=== PATIENT | male | born 1965 | race Caucasian/White ===

== ENCOUNTER 2018-02-05 10:54 | Emergency (ER) | payer OTHER, BC, SELFPAY ==
[2018-02-05 10:56] VITALS: BP 164/125; PULSE 91; RESP 18; TEMP 36.9; O2SAT 95; BMI 37.8
[2018-02-05 12:01] VITALS: BP 153/87; PULSE 82; RESP 16; O2SAT 97
--- NOTE | 2018-02-05 12:01 | ED.RN ---
ORTHOPEDIC PHYSICIAN AT THE BEDSIDE PERFORMING TESTING FOR COMPARTMENT SYNDROME. CONSENT SIGNED
--- NOTE | 2018-02-05 12:24 | ED.VISSUMM ---
- ER Visit Summary Date of Service: 02/05/18 Chief Complaint: Right foot pain History of Present Illness: The patient is a 52 M presenting for evaluation secondary to pain in the right foot. Patient states that he was run over on Monday by a skid bulk loader on the right foot. He had negative x-rays at urgent care. Patient was following up with orthopedics today, had repeat x-rays that showed no fracture, but he has persistent swelling and the orthopedist was concerned for the possibility of compartment syndrome so she sent the patient to the emergency department. Patient denies that he has any history of neuropathy. He denies any numbness or weakness associated with this. He states that he is able to bear weight. He really does not have any pain at rest. Physical Examination: Lower extremity exam shows significant ecchymosis and swelling of the right foot. Normal range of motion of the ankle and toes. Minimal tenderness to palpation over the midfoot. No pain with range of motion of the toes passively. Normal capillary refill distally. Test Results: None performed Emergency Department Course and Treatment: Patient presented due to concern for compartment syndrome. He appears to have normal circulation in the foot, and has no pain at rest and no pain with passive stretch but orthopedics was concerned for the possibility of compartment syndrome. Orthopedics presented to the bedside and performed compartment measurements which were found to be normal. Patient was recommended ice and elevation of the foot and was discharged with a course of tramadol. Disposition: Discharge Impression: 1. Right foot contusion This note was generated with [employer] dictation software. It may contain incorrect words, spelling, and punctuation that were not noted in review of the chart prior to signing ED Disposition - Plan for ED Patient: Disposition: Home or Assisted Living Chief Complaint: Lower Extremity Injury Diagnosis: Contusion of right foot Instructions: ED Contusion Foot Prescriptions: traMADol [Ultram] 50 mg PO Q4H PRN PRN 3 Days #12 tab PRN Reason: Pain Additional Instructions: Followup with ortho as directed
[2018-02-05 12:26] VITALS: BP 127/54; PULSE 67; RESP 15; O2SAT 98
--- NOTE | 2018-02-05 12:30 | ED.DCSUM_ITS ---
- ER Visit Summary Date of Service: 02/05/18 Chief Complaint: Right foot pain History of Present Illness: The patient is a 52 M presenting for evaluation secondary to pain in the right foot. Patient states that he was run over on Monday by a skid truck unloader on the right foot. He had negative x-rays at urgent care. Patient was following up with orthopedics today, had repeat x-rays that showed no fracture, but he has persistent swelling and the orthopedist was concerned for the possibility of compartment syndrome so she sent the patient to the emergency department. Patient denies that he has any history of neuropathy. He denies any numbness or weakness associated with this. He states that he is able to bear weight. He really does not have any pain at rest. Physical Examination: Lower extremity exam shows significant ecchymosis and swelling of the right foot. Normal range of motion of the ankle and toes. Minimal tenderness to palpation over the midfoot. No pain with range of motion of the toes passively. Normal capillary refill distally. Test Results: None performed Emergency Department Course and Treatment: Patient presented due to concern for compartment syndrome. He appears to have normal circulation in the foot, and has no pain at rest and no pain with passive stretch but orthopedics was concerned for the possibility of compartment syndrome. Orthopedics presented to the bedside and performed compartment measurements which were found to be normal. Patient was recommended ice and elevation of the foot and was discharged with a course of tramadol. Disposition: Discharge Impression: 1. Right foot contusion This note was generated with [employer] dictation software. It may contain incorrect words, spelling, and punctuation that were not noted in review of the chart prior to signing ED Disposition - Plan for ED Patient: Disposition: Home or Assisted Living Chief Complaint: Lower Extremity Injury Diagnosis: Contusion of right foot Instructions: ED Contusion Foot Prescriptions: traMADol [Ultram] 50 mg PO Q4H PRN PRN 3 Days #12 tab PRN Reason: Pain Additional Instructions: Followup with ortho as directed
--- NOTE | 2018-02-05 17:02 | PCM.PN.ORT ---
Subjective: Pt is a 52 yo M who was seen in my office earlier this morning. Had crush injury to the R foot Monday after being run over by a skidloader. Has been NWB RLE with crutches. Has taken advil and tylenol for pain which he feels is well controlled. C/o increasing numbness,edema and ecchymosis. Radiographs were negative for fracture at Urgent Care center on 02/03/2018. C/f developing compartment syndrome. Sent from office appointment to [facility] ER for [place] wick catheter testing. Objective: RLE: Vasc: pedal pulses non-palpable 2/2 edema, cap refill to digits 1-5 is sluggish, significant edema of the toes, foot and extending proximally to the ankle, cool distally, +pallor Neuro: diminished light touch sensation to the digits, more so dorsally Derm: no abrasions or lacerations noted, significant ecchymosis of the foot extending proximally to the ankle noted MS: pain with passive DF/PF of the digits and PF of the ankle, pain with heel compression - Physical Exam General: Alert, Cooperative Vital Signs Temp Pulse Resp BP Pulse Ox 98.5 F 67 15 127/54 H 98 02/05/18 10:56 02/05/18 12:26 02/05/18 12:26 02/05/18 12:26 02/05/18 12:26 Weight: 248 lb 12.8 oz Body Mass Index (BMI) 37.8 Medical Necessity - Tobacco Use Smoking Status: Former smoker Assessment/Plan All Active Problems Contusion of right foot (Acute) 52 yo M with R foot crush injury, no obvious fractures, significant edema and sensory changes noted in office c/f compartment syndrome -Pt evaluated at bedside with his present -Vitals reviewed and BP repeated -informed consent was obtained for bedside intercompartmental pressure screening via gwen wick catheter. Benefits and risks were explained and all questions were answered. Risk of normal readings and given his physical presentation that this may develop. -The dorsum of the foot was prepped with alcohol and 0.5 cc 2% lidocaine plain was injected SQ at the sites of measurement along the 2nd and 4th metatarsals. This was repeated at the medial plantar and lateral plantar compartments. -The [place] wick catheter was [facility]ed at a 45 degree angle and inserted at 45 degrees in the dorsomedial and Dorsolateral foot compartments, with it being zero'ed in between each insertion. Readings were <8mmHg. This was repeated at the lateral plantar and lateral medial foot with readings <8mmHg and 15mmHg respectively. Diastolic pressure was measured initially at 125 and then on repeat was 85. The insertion sites were then dressed with a bandaid. -Pt advised to continually monitor his foot and report immediately to the ER with any changes in pain, sensation, edema. He will keep it at heart level and not elevate or dangle. He will refrain from a compressive bandage at this time. I recommend he take tylenol 100mg q8h for pain. Can resume nsaids this weekend if edema and ecchymosis improve. -Pt to f/u with me on Monday in clinic for re-evaluation and continued work up for injury. NWB RLE with crutches until then.
--- NOTE | 2018-02-05 17:08 | PN.ORTHO_ITS ---
Subjective: Pt is a 52 yo M who was seen in my office earlier this morning. Had crush injury to the R foot Monday after being run over by a skidloader. Has been NWB RLE with crutches. Has taken advil and tylenol for pain which he feels is well controlled. C/o increasing numbness,edema and ecchymosis. Radiographs were negative for fracture at Urgent Care center on 02/03/2018. C/f developing compartment syndrome. Sent from office appointment to [facility] ER for [place] wick catheter testing. Objective: RLE: Vasc: pedal pulses non-palpable 2/2 edema, cap refill to digits 1-5 is sluggish, significant edema of the toes, foot and extending proximally to the ankle, cool distally, +pallor Neuro: diminished light touch sensation to the digits, more so dorsally Derm: no abrasions or lacerations noted, significant ecchymosis of the foot extending proximally to the ankle noted MS: pain with passive DF/PF of the digits and PF of the ankle, pain with heel compression - Physical Exam General: Alert, Cooperative Vital Signs Temp Pulse Resp BP Pulse Ox 98.5 F 67 15 127/54 H 98 02/05/18 10:56 02/05/18 12:26 02/05/18 12:26 02/05/18 12:26 02/05/18 12:26 Weight: 248 lb 12.8 oz Body Mass Index (BMI) 37.8 Medical Necessity - Tobacco Use Smoking Status: Former smoker Assessment/Plan All Active Problems Contusion of right foot (Acute) 52 yo M with R foot crush injury, no obvious fractures, significant edema and se nsory changes noted in office c/f compartment syndrome -Pt evaluated at bedside with his present -Vitals reviewed and BP repeated -informed consent was obtained for bedside intercompartmental pressure screening via nick[place] wick catheter. Benefits and risks were explained and all questions were answered. Risk of normal readings and given his physical presentation that this may develop. -The dorsum of the foot was prepped with alcohol and 0.5 cc 2% lidocaine plain was injected SQ at the sites of measurement along the 2nd and 4th metatarsals. This was repeated at the medial plantar and lateral plantar compartments. -The Nicki wick catheter was the [facility]'ed at a 45 degree angle and inserted at 45 degrees in the dorsomedial and Dorsolateral foot compartments, with it being zero'ed in between each insertion. Readings were <8mmHg. This was repeated at the lateral plantar and lateral medial foot with readings <8mmHg and 15mmHg respectively. Diastolic pressure was measured initially at 125 and then on repeat was 85. The insertion sites were then dressed with a bandaid. -Pt advised to continually monitor his foot and report immediately to the ER with any changes in pain, sensation, edema. He will keep it at heart level and not elevate or dangle. He will refrain from a compressive bandage at this time. I recommend he take tylenol 100mg q8h for pain. Can resume nsaids this weekend if edema and ecchymosis improve. -Pt to f/u with me on Monday in clinic for re-evaluation and continued work up for injury. NWB RLE with crutches until then.
== END 2018-02-05 12:38 | disposition home or self-care (01) ==
PROVIDERS: Emergency Provider Emergency Medicine; Family Provider Preventive Medicine Occupational Medicine; PCP Preventive Medicine Occupational Medicine
DX: S90.31XA Contusion of right foot, initial encounter (principal); W31.89XA Contact with other specified machinery, initial encounter; Y93.9 Activity, unspecified; Y92.9 Unspecified place or not applicable; Y99.0 Civilian activity done for income or pay; Z72.0 Tobacco use
CPT/HCPCS: 99282

== ENCOUNTER 2018-02-08 19:46 | Emergency (ER) | payer OTHER, BC, SELFPAY ==
[2018-02-08 19:47] VITALS: BP 163/97; PULSE 100; RESP 20; TEMP 36.9; O2SAT 99; BMI 35.6
--- NOTE | 2018-02-08 20:31 | ED.DCSUM_ITS ---
- ER Visit Summary Date of Service: 02/08/18 Chief Complaint: Blisters and discoloration right foot/ankle History of Present Illness: The patient is a 52 M who had a crush injury February 03. He was seen in the emergency department by Dr. Delgado and by Dr. podiatry medicine Dr. Joanne Molina for compartment syndrome. Her note was read. Patient did what he was told. He denies paresthesia, anesthesia or motor weakness. He denies pain in his distal leg, foot or toes. There is no history of new trauma. was concerned because of increased discoloration near his toes and blisters dorsal lateral proximal aspect of the right foot. Physical Examination: Vital signs noted unremarkable blood pressure 163/97. There is evidence of trauma to the leg. The foot is soft nonpainful. There is no pain with passive plantar dorsiflexion of the ankle or toes. Cap refill is normal. DP and PT pulses are palpable. There is a small blister noted which is not hemorrhagic. There is no evidence of cellulitis, lymphangitis or popliteal lymphadenopathy. Test Results: None Emergency Department Course and Treatment: Dr. Joanne Molina was paged. She was informed of patient's concerns and his physical findings. He is to keep his appointment for this coming Monday unless he develops severe pain, numbness tingling or pallor of the foot/toes. Treatment Plan: As before Disposition: Discharged home in stable condition Impression: Evaluation of crush injury right distal leg, ankle and foot This note was generated with [employer] dictation software. It may contain incorrect words, spelling, and punctuation that were not noted in review of the chart prior to signing ED Disposition - Plan for ED Patient: Disposition: Home or Assisted Living Chief Complaint: Lower Extremity Injury Instructions: ED Contusion Lower Ext Referrals: Gato Juan DO [Primary Care Provider] - Joanne Molina DPM [STAFF PHYSICIAN] - Keep Jennifer appointment Additional Instructions: If you develop numbness or tingling, severe pain or pallor to foot or toes return to the emergency department immediately otherwise keep appointment with Dr. Joanne Molina.
[2018-02-08 20:46] VITALS: BP 176/89; PULSE 85; RESP 16; O2SAT 96
== END 2018-02-08 20:47 | disposition home or self-care (01) ==
PROVIDERS: Emergency Provider Emergency Medicine; Family Provider Preventive Medicine Occupational Medicine; PCP Preventive Medicine Occupational Medicine
DX: S90.01XA Contusion of right ankle, initial encounter (principal); S90.31XA Contusion of right foot, initial encounter; X58.XXXA Exposure to other specified factors, initial encounter; Y93.9 Activity, unspecified
CPT/HCPCS: 99282

== ENCOUNTER → 2018-02-16 14:25 | Outpatient (CLI) | payer BC, OTHER, SELFPAY ==
[2018-02-08 19:47] VITALS: BMI 35.6
--- NOTE | 2018-02-16 14:35 | CT_ITS ---
INJURY, PT GOT FOOT RAN OVER BY A SKID HISTORY DEPARTMENT CHAIR, PAIN AND SWELLING Exam: Noncontrast CT right foot and ankle TECHNIQUE: Routine bone CT protocol was performed of the right ankle and right foot. 2-D reformats were performed by the technologist. A radiation dose optimization technique was used for this scan. IV Contrast dosage and agent: None. COMPARISON: None FINDINGS: The Achilles insertion on the calcaneus was not imaged. No fracture or dislocation. The tibiotalar joint space is preserved and the ankle mortise is not widened. Intact calcaneus and talus. 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 Joint spaces appear preserved. No bony erosions. At the foot, no Lisfranc injury or dislocation. Intact sesamoids. No radiopaque foreign body seen. Superficial soft tissue swelling of the anterolateral foot and ankle. CT/Extremity Lower without Contra IMPRESSION: 1. No fracture, dislocation, or instability. 2. Incomplete calcaneonavicular coalition. . 3. Superficial soft tissue swelling of the anterolateral foot and ankle Individualized dose optimization techniques were used for this CT. at 0326 Reported and signed by: Brandon Maharaj MD Electronically Signed: Brandon Maharaj, at 3:23 EST Tel , Service support ,
== END ==
PROVIDERS: Family Provider Preventive Medicine Occupational Medicine; PCP Preventive Medicine Occupational Medicine; Referring Provider Podiatrist Foot & Ankle Surgery; Visit Provider Podiatrist Foot & Ankle Surgery
DX: M79.671 Pain in right foot (principal); S97.81XA Crushing injury of right foot, initial encounter
CPT/HCPCS: 73700

== ENCOUNTER 2018-03-15 11:35 | Day surgery (SDC) | payer OTHER, BC, SELFPAY ==
[2018-03-15] VITALS (8 sets, daily range): BP systolic 137–179; BP diastolic 81–103; PULSE 78–98; RESP 14–16; TEMP 36.1–37; O2SAT 93–97; BMI 37.0
--- NOTE | 2018-03-15 13:10 | BON_PTH ---
PATIENT: JENNIFER BOSTON [place] [facility] [place][id number] AGE/SX: 53/M ROOM: RE03/15/[address]: Dr. Joanne Molina DPM : 1965 BED: DIS: 03/15/2018 SPEC #: [id number] RECD: 03/16/18 14:33 STATUS: [place] #: [id number] ALEAH: 03/15/18 13:[address]: Joanne Molina DEPT: SURGICAL PATHOLOGY RECD BY: Yusef Tjeada ENTERED: 03/16/18 14:34 SP TYPE: Bone OTHR DR: Dr. Jesus Drew MD Tissues: Bone of foot, NOS Procedures: Decalcification bone/plaque Surgery Specimen Level III HEADER OPERATION: Tarsal coalition resection with muscle reposition PRE-OP DIAGNOSIS: Crushing injury right foot, congenital deformity right foot TISSUE SUBMITTED: Tarsal coalition resection right foot MICROSCOPIC DIAGNOSIS Tarsal coalition resection right foot: Pieces of bone with reactive changes. ZULY:sandip 03/23/18 MICROSCOPIC DESCRIPTION Slides are reviewed. GROSS DESCRIPTION Received in fixative is one container labeled with the patient's name and designated tarsal coalition resection right foot. The specimen consists of multiple irregular and gritty fragments of light mayorga-white bone that in aggregate measure 2.5 x 1.2 x 0.2 cm. The specimen is totally submitted in one cassette after decalcification. / AM:sandip 03/16/18 TC:5 CPT: 16289, 50664
--- NOTE | 2018-03-15 13:38 | RAD_ITS ---
STUDY: X-RAY - RIGHT FOOT CLINICAL: Male, 53 years old. Documentation of radiation dose during a tarsal coalition resection. TECHNIQUE: 4 view(s) of the foot. COMPARISON: CT of the foot dated February 16, 2018. FINDINGS: Total exposure time: 35 seconds. Total Air Kerma (mGy): 1.37 Multiple images document a surgical resection of the tarsal tarsal coalition. Please see operative report for additional details. RAD/Ankle 2 Views IMPRESSION: Documentation of radiation dose. Electronically Signed: Desiree Fung MD at 2:51 EST , Service support ,
[2018-03-15] MEDS: Cefazolin 2 GM in 0.9% Normal Saline 100 ML IV (13:43)
--- NOTE | 2018-03-15 15:48 | PCM.IMDPSTOP ---
Immediate Post-Op Note Date of Procedure: 03/15/18 Primary Surgeon/Physician: Joanne Molina DPM coarse wire drawer: Vicky Stallings Pre-Operative Diagnosis: R CN coalition Post-Operative Diagnosis: same Surgery/Procedure Performed:: R tarsal coalition resection, repair extensor tendon Description of Surgical Findings:: see dictation Estimated Blood Loss: minimal Specimen's removed: R foot bone tarsal coalition Type of Anesthesia:: General/Regional - Admit VTE Documentation VTE Present on Admission: No VTE Mechan Device Prophylaxis: SCD's, Knee High MELVIN Hose VTE Pharm Prophylaxis ordered?: Yes
--- NOTE | 2018-03-15 15:50 | PCM.DC.ORTHO ---
Discharge Activity: May Not Drive, May not drive while taking narcotic pain medications., May Not Shower, Use Walker, Use Crutches Ice area for (Minutes): 20 - behind right knee 20 minutes of each hour while awake Weight Bearing Status: No weight bearing Keep extremity elevated above heart level: Operative Extremity Call your doctor if your incision/area has: Sudden Increased Bleeding Call your doctor if you observe: Fever of 101 or Higher, Shortness of breath, Chest pain, Calf discomfort, Uncontrolled pain Cleanse incision/area with: Keep Dressing Clean & Dry Allergies/Adverse Reactions: Allergies No Known Allergies Allergy (Verified 03/09/18 10:43) Medications to take at Discharge Doxycycline Hyclate 100 mg PO BID 14 Days #28 tab 03/15/18 Oxycodone [Oxyir] 5 mg PO Q6H PRN PRN 7 Days #30 tab 03/15/18 The following prescriptions were given: Oxycodone [Oxyir] 5 mg PO Q6H PRN PRN 7 Days #30 tab PRN Reason: Pain Doxycycline Hyclate 100 mg PO BID 14 Days #28 tab Primary Care Physician: Jesus Drew MD [Primary Care Provider] - Test Results: Test results from this visit will be discussed in further detail at your follow-up appointment, if applicable. Please Follow Up With: Joanne Molina DPM - At your previously scheduled post operative appointment Proposed Discharge Date: 03/15/18
--- NOTE | 2018-03-15 15:53 | DCINST_ITS ---
Discharge Activity: May Not Drive, May not drive while taking narcotic pain medications., May Not Shower, Use Walker, Use Crutches Ice area for (Minutes): 20 - behind right knee 20 minutes of each hour while awake Weight Bearing Status: No weight bearing Keep extremity elevated above heart level: Operative Extremity Call your doctor if your incision/area has: Sudden Increased Bleeding Call your doctor if you observe: Fever of 101 or Higher, Shortness of breath, Chest pain, Calf discomfort, Uncontrolled pain Cleanse incision/area with: Keep Dressing Clean & Dry Allergies/Adverse Reactions: Allergies No Known Allergies Allergy (Verified 03/09/18 10:43) Medications to take at Discharge Doxycycline Hyclate 100 mg PO BID 14 Days #28 tab 03/15/18 Oxycodone [Oxyir] 5 mg PO Q6H PRN PRN 7 Days #30 tab 03/15/18 The following prescriptions were given: Oxycodone [Oxyir] 5 mg PO Q6H PRN PRN 7 Days #30 tab PRN Reason: Pain Doxycycline Hyclate 100 mg PO BID 14 Days #28 tab Primary Care Physician: Jesus Drew MD [Primary Care Provider] - Test Results: Test results from this visit will be discussed in further detail at your follow- up appointment, if applicable. Please Follow Up With: Joanne Molina DPM - At your previously scheduled post operative appointment Proposed Discharge Date: 03/15/18
--- NOTE | 2018-03-15 16:00 | RAD_ITS ---
STUDY: X-RAY - RIGHT FOOT CLINICAL: Male, 53 years old. Follow-up after recent surgery. TECHNIQUE: 3 view(s) of the foot. COMPARISON: CT of the foot dated February 16, 2018. FINDINGS: There is a posterior calcaneal enthesophyte. There is a small talar beak. The intertarsal articulations are within normal limits. Normal metatarsi. Normal metatarsophalangeal joint of the great toe. Normal tibial and fibular sesamoid bones. Normal interphalangeal joint of the great toe. Normal phalanges of the great toe. Normal second through fifth metatarsophalangeal joints. Normal interphalangeal joints and phalanges of the lesser toes. The patient has a posterior splint. There is soft tissue swelling and soft tissue emphysema. RAD/Foot min 3 Views IMPRESSION: Documentation of recent surgery with residual soft tissue swelling and soft tissue emphysema. Electronically Signed: Desiree Fung MD at 3:26 EST , Service support ,
--- NOTE | 2018-03-19 08:49 | PCM.OPRPT ---
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 He was seen that day by an Urgent [facility] who did not feel he had a fracture. He Presented to my clinic that Monday. Pt had significant pain and edema to his R foot and ankle. I did take him to the ER to [facility] catheter exam to rule out compartment syndrome as his presentation and examination was concerning. He followed up with me in clinic following that with continued pain, edema and ecchymosis to his R foot and ankle. A CT was performed on 02/16/2018 to rule out any pathology/fracture not seen on plain films. An incomplete osseous calcanealnavicular coalition was seen on CT. Given that he had no prior issues with this RLE, or knowledge of the coalition, I felt it was aggrevated significantly by the trauma and correlated clinically with his pain and presentation. Patient would like surgical intervention today. All risks, complications, and alternatives were discussed with the patient, and the patient signed an informed consent. No guarantees were given. Procedure: On 03/15/2018, Woodrow Lemon was visually and verbally identified in the preoperative holding area. The consent form was again reviewed with the patient, as were all risks, complications, and alternatives and the patient wished to proceed with the proposed surgery. The right foot was marked as the correct operative extremity. The patient was brought to the operating room and placed on the operating room table in the lazy lateral position. After induction by anesthesia, a surgical time out was performed and all present were in agreement. a pneumatic thigh tourniquet was then placed. At this time the right lower extremity was prepped and draped in the usual sterile fashion. after exsanguination with an esmarch the tourniquet was inflated to 300 mmHg. At this time attention was directed to the right anterolateral ankle/proximal foot. Utilizing intra operative fluoroscopy, the CN coalition was visualized on the oblique view.Using a #15 blade an oblique/linear incision was made over the coalition from the lateral edge of the navicular to distal to the fibula. The incision was bluntly carried deep through the subcutaneous tissues with careful attention paid to all bleeders, which were clamped and tied or bovied as necessary. All vital neurovascular structures were retracted. The EDB muscle belly was identified. In order to raise this muscle belly as a distal flap to expose the coalition was I did transect the peroneal tertius tendon which appeared attenuated and thinned. The ends were clamped with marcello clamps for later repair. The EDB muscle was then lifted from its insertion and the incomplete osseous coalition was visualized. At this time it was noted the limited amount of eversion of the foot. Several ossicles were identified and resected using a combination of ronguers and osteotomes. I then used small osteotome and a mallet to further resect the incomplete coalition with removal of the resected bone. Intraoperative fluoroscopy was used to guide this and evaluated the resection. When I was satisfied with the increased amount of eversion and the intraoperative fluorscopy images, the resection site was flushed with copious amounts of normal sterile saline. We had discussed a possible EDB muscle interposition, however, I felt the resection was sufficient and given his age he would not regrow the coalition. Bone wax was then placed on the lateral most navicular and the medial calcaneus at the resection site. The EDB muscle was then reapproximated to its insertion with 2.0 vicryl. The peroneal tertius tendon was then repair with 3.0 vicryl in an end to end fashion. Closure was then initiated with 2.0 vicryl for the deep structures, 3.0 vicryl for the subcutaneous tissue and 3.0 prolene for the skin. I did send the soft tissue and bone that I resected to pathology. The incision site was dressed with adaptic and dry sterile dressing. A multilayer compressive dressing was then applied along with a well padded posterior splint. Total tourniquet time was72 minutes with immediate capillary refill noted to all digits upon deflation. Intra operative fluoroscopy was utilized throughout the case, > 1 hour, to aid in visualization and confirmation of the coalition as well as the resection. Interpretation of the images was vital to my decision making process. The patient tolerated the procedure and anesthesia well. The patient was then transported to the postanesthesia care unit by a member of the anesthesia team and myself with all vital signs stable and neurovascular status of the right lower extremity equal to pre-operative levels. Anesthesia will perform a post operative RLE block in PACU. At the end of the case all sponge, needle and instrument counts were found to be correct. baggage inspector: Vicky Stallings Type of Anesthesia:: General/Regional Specimen's removed: R foot bone tarsal coalition Estimated Blood Loss (mL): minimal Description of Procedure: Indications: Pt is a [] yo with PMH PT would like surgical intervention today. All risks, complications, and alternatives were discussed with the patient, and the patient signed an informed consent. No guarantees were given. Procedure: On date, name was visually and verbally identified in the preoperative holding area. The consent form was again reviewed with the patient, as were all risks, complications, and alternatives and the patient wished to proceed with the proposed surgery. The [] foot/ankle was marked as the correct operative extremity. The patient was brought to the operating room and placed on the operating room table in the normal SUPINE position. After induction by anesthesia, a surgical time out was performed and all present were in agreement. a pneumatic thigh tourniquet was then placed. At this time the [] lower extremity was prepped and draped in the usual sterile fashion. after exsanguination with an esmarch the tourniquet was inflated to 300 mmHg. At this time attention was directed to the The incision was bluntly carried deep through the subcutaneous tissues with careful attention paid to all bleeders, which were clamped and tied or bovied as necessary. All vital neurovascular structures were retracted. Dressings Total tourniquet time was [] minutes with immediate capillary refill noted to all digits upon deflation. Intra operative fluoroscopy was utilized throughout the case, > 1 hour, to aid in visualization and confirmation of fracture reduction and screw and plate fixations. Interpretation of the images was vital to my decision making process. The patient tolerated the procedure and anesthesia well. The patient was then transported to the postanesthesia care unit by a member of the anesthesia team and myself with all vital signs stable and neurovascular status of the [ ] lower extremity equal to pre-operative levels. At the end of the case all sponge, needle and instrument counts were found to be correct. Physician social science research assistant was integral in all portions of this procedure. They assisted with positioning the patient, draping the extremity, holding retractors, closing the wound, and applying the dressing. This was all done under my direct supervision. The physician social science research assistant was essential for a successful, efficient surgery. Patient will be admitted/discharged... This ends dictation on [ ] dictated by Joanne Molina DPM
== END 2018-03-15 17:49 | disposition home or self-care (01) ==
LOC: SDC 11:35 → AC 11:37
PROVIDERS: Family Provider Family Medicine; PCP Family Medicine; Referring Provider Podiatrist Foot & Ankle Surgery; Visit Provider Podiatrist Foot & Ankle Surgery
DX: S97.81XA Crushing injury of right foot, initial encounter (principal); W31.89XA Contact with other specified machinery, initial encounter; Q66.89 Other specified congenital deformities of feet; R03.0 Elevated blood-pressure reading, without diagnosis of hypertension; Z87.891 Personal history of nicotine dependence
CPT/HCPCS: 01480; 28116; 28200; 64445; 73600; 73630; 76000; 88304; 88305; 88311; J7120; J2405

== ENCOUNTER 2018-03-28 15:41 | Emergency (ER) | payer BC, SELFPAY ==
[2018-03-15 12:04] VITALS: BMI 37.0
[2018-03-28 15:42] VITALS: BP 146/102; PULSE 102; RESP 18; TEMP 36.6; O2SAT 96; BMI 36.9
[2018-03-28 15:46] VITALS: TEMP 36.7
--- NOTE | 2018-03-28 15:51 | CT_ITS ---
STUDY: CT ABDOMEN AND PELVIS WITHOUT CONTRAST REASON FOR EXAM: Male, 53 years old. Left groin and testicular pain. RADIATION DOSAGE (If Supplied By Facility): CTDIvol = ( 17.78 ) mGy, DLP = ( 1141.68 ) mGycm TECHNIQUE: Transaxial images were obtained from the dome of the diaphragm to the symphysis pubis without oral contrast, and without intravenous contrast. Sagittal and coronal images were reconstructed. Individualized dose optimization techniques were used for this CT. COMPARISON: None. FINDINGS: The visualized lung bases are unremarkable. There are coronary artery calcifications. There is decreased attenuation of the liver consistent with steatosis. Normal gallbladder and extrahepatic biliary system. Normal spleen. Normal pancreas. Normal bilateral adrenal glands. Normal right kidney. Normal left kidney. There is left hydroureter secondary to a 3.8 mm calculus within the distal ureter. Normal visualized stomach. Normal small intestine. There are scattered diverticula throughout the colon. The appendix is visualized and appears normal. Normal abdominal aorta. Normal inferior vena cava. Normal retroperitoneum. Normal urinary bladder. Normal abdominal wall. There are diffuse degenerative changes of the visualized thoracic and lumbar spine. CT/Abdomen/Pelvis without Cont IMPRESSION: Left hydroureter secondary to a 3.8 mm calculus within the distal ureter. Fatty infiltration of the liver. Degenerative changes. Atherosclerosis. Electronically Signed: Gina Leonardo MD at 16:32 EST Tel , Service support ,
[2018-03-28] MEDS: Ondansetron 4 MG/2 ML Vial IV (15:56)
[2018-03-28] MEDS: Morphine 4 MG/ML Syringe IV ×2 (15:56→17:06)
[2018-03-28] MEDS: 0.9% Normal Saline 1,000 ML 125 ML IV (15:56)
[2018-03-28] MEDS: Ketorolac 30 MG/ML Syringe IV (15:56)
[2018-03-28 16:06] LABS: Absolute Lymphocyte Count 1.68 X10^3/ul (0.83-4.51); Absolute Neutrophil Count 8.4 X10^3/uL (2.0-7.7); Basophil# 0.04 X10^3/uL; Basophil% 0.4 % (0-1); Eosinophil# 0.06 X10^3/uL; Eosinophils% 0.5 % (0-5); Hematocrit 48.7 % (40-54); Hemoglobin 16.2 g/dl (13.0-16.5); Lymphocyte # 1.68 X10^3/ul (4.0); Lymphocyte % 15.2 % (19-41); Mean Corp Hgb Conc 33.3 g/gl (32-36); Mean Corpuscular Hgb 28.5 pg (27.0-32.0); Mean Corpuscular Volume 85.6 fL (80-94); Mean Platelet Vol. 9.2 fl (6.2-12.0); Monocyte# 0.81 X10^3/uL; Monocyte% 7.3 % (0-10); Neutrophil % 76.2 % (47-70); Platelet Count 193 K/mm3 (150-450); RBC Distribution Width CV 12.8 % (11.6-14.6); RBC Distribution Width SD 39.7 fl (35.1-43.9); Red Blood Count 5.69 M/mm3 (4.6-6.2)
[2018-03-28 16:09] LABS: POSITIVE COUNT NO; POSITIVE DIFFERENTIAL NO; POSITIVE MORPHOLOGY NO
[2018-03-28 16:12] LABS: Anion Gap 11 (5-15); BUN 28 mg/dL (7-18); BUN/Creat Ratio 17.1 RATIO (10-20); Calcium,Total 9.2 mg/dL (8.5-10.1); Chloride 103 mmol/L (98-107); Creatinine, Serum 1.64 mg/dL (0.70-1.30); EST Glomerular Filtration Rate 47 mL/min (>60); Est Glom Filt Rate - Afr Amer 57 mL/min (>60); Estimated Creatinine Clearance 52.09 ml/min; Glucose 169 mg/dL (74-106); Potassium 4.2 mmol/L (3.5-5.1); Sodium Level 139 mmol/L (136-145)
--- NOTE | 2018-03-28 16:39 | ED.VISSUMM ---
- ER Visit Summary Date of Service: 03/28/18 Chief Complaint: [Left flank pain] History of Present Illness: The patient is a 53 M presents to the emergency department with left-sided flank pain that started around 1:30 PM today. Pain came on suddenly. Patient describes it is in the left lower quadrant radiating to his left testicle. Patient developed sweats. Patient had nausea and vomited x2. Patient has never had discomfort like this before. He denies any fever. He denies recent illness. He denies urinary symptoms. [] Physical Examination: [HEENT-PERRLA, EOMI. Cranial nerves II through XII grossly intact. TMs clear. Mucous membranes moist. No adenopathy. Cardiovascular-regular rate and rhythm without murmur or ectopy Lungs-clear to auscultation, chest wall stable without crepitus or subcu emphysema Abdomen-normoactive bowel sounds, soft. Patient has tenderness palpation over left lower quadrant with some guarding. Patient has CVA tenderness on the left. Extremities-intact ?4, normal range of motion, normal pulses, atraumatic] Test Results: [CBC with differential obtained showed a white count of 11.0, hemoglobin 16, hematocrit 49, platelets 193. Chemistries unremarkable. BUN was 28 and creatinine 1.64. Urinalysis is pending. CT flank obtained showed a 3.8 mm calculus of the left distal ureter with hydroureter.] Emergency Department Course and Treatment: [Patient was medicated with Toradol, Zofran, and morphine. Patient had good pain relief and currently rates his pain a 2 out of 10.] Treatment Plan: [Patient will be discharged home with referral to urology for follow-up. He will be given urine strainers. He will be given a prescription for [place] and Zofran.] Disposition: [Discharged home in stable condition. Patient advised to return if worsening pain, fever, vomiting, or condition should worsen anyway.] Impression: [Urolithiasis with colic] This note was generated with [employer] dictation software. It may contain incorrect words, spelling, and punctuation that were not noted in review of the chart prior to signing ED Disposition - Plan for ED Patient: Chief Complaint: Flank Pain Referrals: Jesus Drew MD [Primary Care Provider] -
--- NOTE | 2018-03-28 16:41 | ED.DEP ---
ED Disposition - Plan for ED Patient: Chief Complaint: Flank Pain Instructions: ED Stone Renal W Colic Prescriptions: Hydrocodone Bitart/Apap 5-325 [[place] 5MG-325MG] 1 tab PO Q4H PRN PRN 2 Days #15 tab PRN Reason: Pain Ondansetron [Zofran Odt] 4 mg PO Q8H PRN PRN #10 tab PRN Reason: Nausea Naproxen [Naprosyn] 500 mg PO BID PRN #20 tab Referrals: Jesus Drew MD [Primary Care Provider] - Issa Manzanares MD [STAFF PHYSICIAN] - As Needed
[2018-03-28 16:50] LABS: Bacteria 0 SEEN /hpf (None Seen); Mucous, Urine 0 SEEN /hpf (<or=2+); Squamous Epithelial Cells - UA 0 SEEN /hpf (0-5)
[2018-03-28 16:55] VITALS: RESP 16; TEMP 37.1
[2018-03-28 17:18] LABS: Color, Urine Yellow (Yellow); Glucose, Dipstick Normal (Normal); Ketone-Dipstick Negative (Negative); Leukocyte Esterase-Dipstick Negative /ul (Negative); Nitrite-Dipstick Negative (Negative); Occult Blood-Urine 250 /ul (Negative); Protein-Dipstick 30 mg/dl (Negative); Specific Gravity, Urine 1.025 (1.002-1.030); Urine Bilirubin Dipstick Negative (Negative); Urine Clarity Sl. Cloudy (Clear); Urine Urobilinogen Normal (Normal)
[2018-03-28 17:25] LABS: Red Blood Cells-Urine > 100 SEEN /hpf (0-5); White Blood Cells 0-5 SEEN /hpf (0-5)
--- NOTE | 2018-03-28 17:41 | ED.DEP ---
ED Disposition - Plan for ED Patient: Chief Complaint: Flank Pain Instructions: ED Stone Renal W Colic Prescriptions: Hydrocodone Bitart/Apap 5-325 [[place] 5MG-325MG] 1 tab PO Q4H PRN PRN 2 Days #15 tab PRN Reason: Pain Oxycodone HCl/Acetaminophen [Percocet 5/325] 1 tab PO Q6H PRN PRN 3 Days #15 tab PRN Reason: Pain Ondansetron [Zofran Odt] 4 mg PO Q8H PRN PRN #10 tab PRN Reason: Nausea Naproxen [Naprosyn] 500 mg PO BID PRN #20 tab Referrals: Jesus Drew MD [Primary Care Provider] - Issa Manzanares MD [STAFF PHYSICIAN] - As Needed
[2018-03-28 18:04] VITALS: BP 161/98; PULSE 100; RESP 17; TEMP 37.1; O2SAT 96
== END 2018-03-28 18:07 | disposition home or self-care (01) ==
PROVIDERS: Emergency Provider Emergency Medicine; Family Provider Family Medicine; PCP Family Medicine
DX: N13.4 Hydroureter (principal); N20.1 Calculus of ureter; Z72.0 Tobacco use
CPT/HCPCS: 74176; 80048; 81001; 85025; 96361; 96374; 96375; 96376; 99283; J7030; A4216; J2405

== ENCOUNTER 2018-03-31 08:42 | Emergency (ER) | payer BC, SELFPAY ==
[2018-03-31 08:43] VITALS: BP 170/130; PULSE 88; RESP 20; TEMP 36.5; O2SAT 99; BMI 36.9
[2018-03-31 08:52] VITALS: BP 156/90
--- NOTE | 2018-03-31 08:56 | CT_ITS ---
STUDY: CT ABDOMEN AND PELVIS WITHOUT CONTRAST REASON FOR EXAM: Male, 53 years old. Worsening left flank pain today, trouble urinating, nausea, known kidney stone.. RADIATION DOSAGE (If Supplied By Facility): CTDIvol = ( 18.87 ) mGy, DLP = ( 1055.50 ) mGycm TECHNIQUE: Transaxial images were obtained from the dome of the diaphragm to the symphysis pubis without oral contrast, and without intravenous contrast. Sagittal and coronal images were reconstructed. Individualized dose optimization techniques were used for this CT. COMPARISON: March 28, 2018 FINDINGS: The visualized lung bases are unremarkable. The visualized portions of the heart are within normal limits. There is decreased attenuation of the liver consistent with steatosis. Normal gallbladder and extrahepatic biliary system. Normal spleen. Normal pancreas. Normal bilateral adrenal glands. Normal right kidney. There is mild hydroureteronephrosis, slightly increased since the prior examination. There is a 4 mm calculus at the bladder now. Normal visualized stomach. Normal small intestine. There are multiple colonic diverticula consistent with diverticulosis. The appendix is visualized and appears normal. There is mild atherosclerotic calcification of the abdominal aorta, without a demonstrated aneurysm. Normal inferior vena cava. Normal retroperitoneum. Normal urinary bladder. Normal abdominal wall. There are diffuse degenerative changes of the visualized lumbar spine. CT/Abdomen/Pelvis without Cont IMPRESSION: Interval migration of left ureteral calculus, within the bladder now. Slightly increased left hydroureteronephrosis. Electronically Signed: Ramone Abebe MD at 9:44 EST Tel , Service support ,
--- NOTE | 2018-03-31 08:56 | ED.VISSUMM ---
- ER Visit Summary Date of Service: 03/31/18 Chief Complaint: [] Left flank pain history of kidney stone diagnosed Monday History of Present Illness: The patient is a 53 M [] patient indicates he began having severe left flank pain around Monday he was seen in the emergency room diagnosed left-sided kidney stone, he was medicated and treated and discharged and follow-up with urology on he indicates that he seen the urologist he was told that the stone would likely pass, on Monday he felt much better and then today again the pain intensified to the point that it became unbearable the left flank than the left lower quadrant radiating, he had dark urine, he believes he may have seen a kerline of something in the urine strainer when he P yesterday but is not 100% sure. He has had no fever no cough no chest pain he has bowel and bladder habits are otherwise unremarkable he had no trauma His recent history is remarkable fact he suffered a right foot fracture and had surgery March 15 and is healing from that he has a splint on his right leg that is healing and unremarkable, he has no history of IA PE DVT other than the flank pain he has no complaints Physical Examination: [] 170/80 99% afebrile General, no distress resting comfortably HEENT is generally unremarkable The neck is supple no adenopathy Cardiovascular, regular rate and rhythm Lungs, clear bilateral Abdomen, soft nontender, has a very vague left flank pain to percussion it radiates around to the left side the abdomen the abdomen itself is soft and nontender Extremities, no clubbing cyanosis or edema Neurologic, awake alert answering questions appropriately moving all 4 extremities Test Results: [] Emergency Department Course and Treatment: [] All the above screening labs pain management CT flank Screening labs are generally unremarkable except UA shows signs of red cells, see that report, the flank CT shows a stone in the bladder there is an increase in the left hydronephrosis but no other signs of obstruction, on reevaluation patient is resting comfortably in the bed he feels better again he has no chest pain or shortness of breath I explained the test results to him I explained that the stone may have passed because intense location of the pain and now improvement of his symptoms that he needs additional management for the flank pain for resolution of the hydronephrosis etc. we discussed inpatient versus outpatient management he is feeling better wants to go home and will return for change in symptoms and follow-up with his urologist and outpatient providers as his symptoms have resolved Treatment Plan: [] Disposition: [] Home stable Impression: [] Left flank pain resolved, signs of passed kidney stone, but persistent left hydronephrosis on CT flank see that report This note was generated with [employer] dictation software. It may contain incorrect words, spelling, and punctuation that were not noted in review of the chart prior to signing ED Disposition - Plan for ED Patient: Chief Complaint: Flank Pain Referrals: Jesus Drew MD [Primary Care Provider] -
[2018-03-31] MEDS: 0.9% Normal Saline 1,000 ML 250 ML IV (09:08)
[2018-03-31] MEDS: Ketorolac 30 MG/ML Syringe IV (09:08)
[2018-03-31] MEDS: Ondansetron 4 MG/2 ML Vial IV (09:08)
[2018-03-31 09:11] LABS: Absolute Lymphocyte Count 1.56 X10^3/ul (0.83-4.51); Absolute Neutrophil Count 5.6 X10^3/uL (2.0-7.7); Basophil# 0.03 X10^3/uL; Basophil% 0.4 % (0-1); Eosinophil# 0.11 X10^3/uL; Eosinophils% 1.3 % (0-5); Hematocrit 45.8 % (40-54); Hemoglobin 15.4 g/dl (13.0-16.5); Lymphocyte # 1.56 X10^3/ul (4.0); Lymphocyte % 18.8 % (19-41); Mean Corp Hgb Conc 33.6 g/gl (32-36); Mean Corpuscular Hgb 28.7 pg (27.0-32.0); Mean Corpuscular Volume 85.3 fL (80-94); Mean Platelet Vol. 8.8 fl (6.2-12.0); Monocyte# 0.96 X10^3/uL; Monocyte% 11.6 % (0-10); Neutrophil # 5.59 X10^3/uL (2.7-7.7); Neutrophil % 67.5 % (47-70); POSITIVE COUNT NO; POSITIVE DIFFERENTIAL NO; POSITIVE MORPHOLOGY NO; Platelet Count 145 K/mm3 (150-450); RBC Distribution Width CV 12.7 % (11.6-14.6); RBC Distribution Width SD 39.2 fl (35.1-43.9); Red Blood Count 5.37 M/mm3 (4.6-6.2); White Blood Count 8.3 K/mm3 (4.4-11.0)
[2018-03-31 09:22] LABS: Anion Gap 10 (5-15); BUN 23 mg/dL (7-18); BUN/Creat Ratio 14.6 RATIO (10-20); Calcium,Total 8.9 mg/dL (8.5-10.1); Chloride 104 mmol/L (98-107); Creatinine, Serum 1.58 mg/dL (0.70-1.30); EST Glomerular Filtration Rate 49 mL/min (>60); Est Glom Filt Rate - Afr Amer 59 mL/min (>60); Estimated Creatinine Clearance 54.07 ml/min; Glucose 126 mg/dL (74-106); Potassium 4.1 mmol/L (3.5-5.1); Sodium Level 139 mmol/L (136-145)
[2018-03-31 09:24] LABS: Color, Urine Yellow (Yellow); Glucose, Dipstick Normal (Normal); Ketone-Dipstick Negative (Negative); Leukocyte Esterase-Dipstick 25 /ul (Negative); Nitrite-Dipstick Negative (Negative); Occult Blood-Urine 250 /ul (Negative); Protein-Dipstick Negative (Negative); Specific Gravity, Urine 1.025 (1.002-1.030); Urine Bilirubin Dipstick Negative (Negative); Urine Clarity Sl. Cloudy (Clear); Urine Urobilinogen Normal (Normal)
[2018-03-31 09:34] LABS: Bacteria RARE /hpf (None Seen); Hyaline Cast 0-5 SEEN /lpf (0-5); Mucous, Urine 1+ /hpf (<or=2+); Red Blood Cells-Urine 5-10 SEEN /hpf (0-5); Squamous Epithelial Cells - UA 0-5 SEEN /hpf (0-5); White Blood Cells 0-5 SEEN /hpf (0-5)
[2018-03-31 09:51] VITALS: BP 142/82; PULSE 82; RESP 15; O2SAT 92
--- NOTE | 2018-03-31 10:53 | ED.DEP ---
ED Disposition - Plan for ED Patient: Chief Complaint: Flank Pain Instructions: ED Flank Pain Uncertain Cause, ED Stone Renal Passed Referrals: Jesus Drew MD [Primary Care Provider] - Additional Instructions: Follow-up with your urologist and all of your outpatient providers return for change in symptoms
[2018-03-31 11:02] VITALS: PULSE 75; RESP 15; O2SAT 98
== END 2018-03-31 11:03 | disposition home or self-care (01) ==
LOC: ED 09:09
PROVIDERS: Emergency Provider Emergency Medicine; Family Provider Family Medicine; PCP Family Medicine
DX: N21.0 Calculus in bladder (principal); N13.30 Unspecified hydronephrosis
CPT/HCPCS: 74176; 80048; 81001; 85025; 96361; 96374; 96375; 99282; J7030; J2405

== ENCOUNTER → 2022-02-28 | Outpatient (CLI) | payer BC, SELFPAY ==
[2022-02-28 17:48] LABS: PSA,Total- Diagnostic 1.85 ng/mL (0.0-4.0)
== END | disposition home or self-care (01) ==
LOC: LAB 15:57
PROVIDERS: PCP Family Medicine; Visit Provider Urology
DX: R97.20 Elevated prostate specific antigen [PSA] (principal)
CPT/HCPCS: 36415; 84153

== ENCOUNTER → 2023-03-07 | Outpatient (CLI) | payer BC, SELFPAY | END | disposition home or self-care (01) | PROVIDERS: PCP Family Medicine; Referring Provider Urology; Visit Provider Urology | DX: R97.20 Elevated prostate specific antigen [PSA] (principal) | CPT/HCPCS: 36415; 84153 ==